=== PATIENT | male | born 1965 | race Two or more races ===

== ENCOUNTER 2018-12-04 13:47 | Emergency (ER) | payer SELFPAY ==
[~2018-12-04] VITALS: Ht 180.3 cm; Wt 97.5 kg
[2018-12-04] MEDS ORDERED: CYCLOBENZAPRINE 10 MG TABLET. PO ONE (14:45)
[2018-12-04] MEDS ORDERED: NAPROXEN 500 MG TABLET PO STA (14:45)
[2018-12-04] MEDS ORDERED: HYDROcodone/APAP 5/325MG 1 TAB TABLET PO ONE (14:45)
--- NOTE | 2018-12-04 14:48 | PHYS DOC ---
Past Medical History Past Medical History: No Pertinent History Past Surgical History: No Surgical History Alcohol Use: None Drug Use: None Adult General Chief Complaint Chief Complaint: LOWER BACK PAIN OR INJURY HPI HPI Patient is a 53 year old male with no significant medical history who presents to the ED today complaining of 9 out of 10 left low back pain radiating to the left lower extremity that began 2 weeks ago after he lifted something heavy at work and got worse in the last 2 days. Patient denies any known injury. Patient denies any numbness or tingling to bilateral lower extremities, denies any loss of bowel bladder function. He states his been taking ibuprofen with slight relief. He describes the pain as sharp and intermittent. Review of Systems Review of Systems Constitutional: Denies fever or chills [] GI: Denies abdominal pain, nausea, vomiting, bloody stools or diarrhea [] : Denies dysuria or hematuria [] Musculoskeletal: Reports left low back pain radiating to the left lower extremity Integument: Denies rash or skin lesions [] Neurologic: Denies headache, focal weakness or sensory changes [] All other systems were reviewed and found to be within normal limits, except as documented in this note. Current Medications Current Medications Current Medications Medications (Trade) Dose Ordered Sig/Bella Start Time Stop Time Status Last Admin Dose Admin Acetaminophen/ Hydrocodone Bitart (Lortab 5/325) 2 tab 1X ONCE 12/04/18 14:45 12/04/18 14:46 DC Cyclobenzaprine HCl (Flexeril) 10 mg 1X ONCE 12/04/18 14:45 12/04/18 14:46 DC Naproxen (Naprosyn) 500 mg 1X STAT 12/04/18 14:45 12/04/18 14:46 DC Allergies Allergies Allergies Coded Allergies Type Severity Reaction Last Updated Verified No Known Drug Allergies 12/04/18 No Physical Exam Physical Exam Constitutional: Well developed, well nourished, no acute distress, non-toxic appearance. [] Abdomen: Bowel sounds normal, soft, no tenderness, no masses, no pulsatile masses. [] Skin: Warm, dry, no erythema, no rash. [] Back: Tenderness on palpation of the left SI joint, no midline lumbar spine tenderness, no CVA tenderness. [] Extremities: No tenderness, no cyanosis, no clubbing, ROM intact, no edema. [] Neurologic: Alert and oriented X 3, normal motor function, normal sensory function, no focal deficits noted. [] Psychologic: Affect normal, judgement normal, mood normal. [] Current Patient Data Vital Signs Vital Signs Date Time Temp Pulse Resp B/P (MAP) Pulse Ox O2 Delivery O2 Flow Rate FiO2 12/04/18 14:15 98.0 75 16 186/110 (135) 98 Room Air 98.0 EKG EKG [] Radiology/Procedures Radiology/Procedures [] Course & Med Decision Making Course & Med Decision Making Pertinent Labs and Imaging studies reviewed. (See chart for details) This is a 53-year-old male patient presented to the ED today with left low back pain radiating to the left lower extremity, symptoms began 2 weeks ago after he lifted some heavy items at work. Patient has no cauda equina syndrome symptoms. Patient is in no distress. Patient was discharged with diclofenac, cyclobenzaprine, Medrol Dosepak, blood pressure was 186/110 with a heart rate of 75, patient does not have any known history of hypertension. Does not have any chest pain headache or shortness of breath. Will be provided clinic list for both as an outpatient. Discussed other remedies including weight loss, diet and exercise. Dragon Disclaimer Dragon Disclaimer This electronic medical record was generated, in whole or in part, using a voice recognition dictation system. Departure Departure Impression: Primary Impression: Sciatica of left side Additional Impressions: Lumbosacral strain HTN (hypertension) Disposition: 01 HOME, SELF-CARE Condition: STABLE Referrals: NO PCP (PCP) Follow-up in 1-2 weeks Patient Instructions: Lumbosacral Strain, Sciatica, [id number] Additional Instructions: You were evaluated in the emergency room for back pain. We put you on medications, take them as prescribed. Do not lift anything greater than a gallon of milk for 3 days. Your blood pressure is high. Try to exercise and lose some weight it will help with your blood pressure, avoid eating salty greasy foods. Follow-up with a doctor from the provided list in one week Scripts Cyclobenzaprine Hcl (CYCLOBENZAPRINE HCL) 10 Mg Tablet 1 TAB PO TID, #30 TAB Prov: MUTUNGA,RADHIKA [employer] 12/04/18 Methylprednisolone (MEDROL) 4 Mg Tab.ds.pk 1 PKG PO UD, #1 PKG Prov: MUTUNGA,RADHIKA [employer] 12/04/18 Diclofenac Potassium (DICLOFENAC POTASSIUM) 50 Mg Tablet 1 TAB PO BID, #60 TAB 1 Refill Prov: RADHIKA WOODARD APRN 12/04/18 Problem Qualifiers Additional Impressions: Lumbosacral strain Encounter type: initial encounter Qualified Codes: S39.012A - Strain of muscle, fascia and tendon of lower back, initial encounter HTN (hypertension) Hypertension type: unspecified Qualified Codes: I10 - Essential (primary) hypertension RADHIKA WOODARD APRN Dec 04, 2018 14:48
[2018-12-04] MEDS ORDERED: CYCL10TA2 PO (14:57)
[2018-12-04] MEDS ORDERED: DICL50TA2 PO (14:57)
[2018-12-04] MEDS ORDERED: METH4TAB2 PO (14:57)
[2018-12-04 15:11] VITALS: BP 177/92
== END 2018-12-04 15:12 | disposition home or self-care (01) ==
LOC: ER 13:47
DX: S39.012A Strain of muscle, fascia and tendon of lower back, initial encounter (principal); I10 Essential (primary) hypertension; M54.42 Lumbago with sciatica, left side; X50.0XXA Overexertion from strenuous movement or load, initial encounter; Y93.89 Activity, other specified; Y92.89 Other specified places as the place of occurrence of the external cause; Y99.0 Civilian activity done for income or pay
CPT/HCPCS: 99284